=== PATIENT | male | born 1985 | race Caucasian/White ===

== ENCOUNTER → 2024-04-18 | Day surgery (SDC) | payer OTHER ==
[2024-04-17 09:27] VITALS: BMI 30.1
[~2024-04-18] MED LIST: PROPOFOL 10 MG/ML 20 ML VIAL IV ONE
[2024-04-18 13:06] VITALS: RESP 16; TEMP 98
[2024-04-18] MEDS: LACTATED RINGERS 1,000 ML IV SCH (13:15)
[2024-04-18] MEDS: IV FLUID CONTINUATION 1,000 ML IV ONE (13:15)
[2024-04-18] MEDS: LIDOCAINE 1% (10MG/ML) FOR IV START INTRADERMA STA (13:17)
--- NOTE | 2024-04-18 14:00 | P.PCN ---
Date of Procedure: 04/18/24 Procedure(s) Performed: BRIEF HISTORY: Patient is a 39-year-old pleasant white male scheduled for an elective colonoscopy as a part of evaluation of intermittent rectal bleeding for the last 6 months duration. PROCEDURE PERFORMED: Colonoscopy. PREOPERATIVE DIAGNOSIS: Intermittent rectal bleeding. IV sedation per Anesthesia. PROCEDURE: After informed consent was obtained, the patient, was brought into the endoscopy unit. IV sedation was administered by Anesthesia under continuous monitoring. Digital rectal examination was normal. Initially the Olympus CF-160 flexible video colonoscope was then inserted in the rectum, gradually advanced into the cecum without any difficulty. Careful examination was performed as the scope was gradually being withdrawn. Ileocecal valve and the appendiceal orifice were visualized and appeared normal. Prep was excellent. Mucosa of the cecum, ascending colon, transverse colon, descending colon, sigmoid colon, and rectum appeared normal. Retroflexion was performed in the rectum and small internal hemorrhoids were seen. The patient tolerated the procedure well. IMPRESSION: Normal-appearing colon from rectum to cecum no evidence of colorectal neoplasia. Small internal hemorrhoids RECOMMENDATIONS: Findings of this examination were discussed with the patient as well as his family.. He was advised to be on a high-fiber diet and fiber supplements on a regular basis. Avoid straining and constipation. Recommended repeat screening colonoscopy in 10 years.
[2024-04-18 14:39] VITALS: BP 115/69; PULSE 79
== END ==
LOC: ORWHC2ENDO 12:13
PROVIDERS: ATTEND Internal Medicine Gastroenterology
DX: K64.8 Other hemorrhoids (principal); K21.9 Gastro-esophageal reflux disease without esophagitis; Z98.890 Other specified postprocedural states
CPT/HCPCS: 45378; J2704